=== PATIENT | male | born 1960 | race Caucasian/White ===

== ENCOUNTER 2020-11-09 11:09 | Day surgery (SDCO) | payer OTHER ==
[~2020-11-09] VITALS: Ht 165.1 cm; Wt 67.0 kg
[2020-11-09 11:48] LABS: BASOPHIL 0.2 % (0-2); EOSINOPHIL 0.9 % (0-5); HCT 37.6 % (42.0-52.0); HGB 13.1 g/dl (13.2-18.0); MCH 30.8 pg (25.0-31.0); MCHC 34.8 g/dL (32.0-36.0); MCV 88.5 fL (78.0-100.0); MONOCYTE 5.7 % (0-12); MPV 8.6 fL (6.0-9.5); NEUTROPHIL 80.7 % (41-80); NRBC 0; PLT 333 K/uL (150-400); RBC 4.25 M/uL (4.70-6.00); RDW 12.8 % (11.5-14.0); WBC 12.9 K/uL (4.0-10.5)
[2020-11-09 12:21] LABS: BILIRUBIN - TOTAL 0.4 mg/dL (0.2-1.0); BUN/CREAT RATIO (CALC) 14.1 RATIO; CREATININE 2.63 mg/dL (0.67-1.17); POTASSIUM 5.1 mmol/L (3.5-5.1)
[2020-11-09 17:42] LABS: BILIRUBIN NEGATIVE (NEGATIVE); BLOOD NEGATIVE Ery/uL (NEGATIVE); CLARITY CLEAR (CLEAR); COLOR YELLOW (YELLOW); GLUCOSE (U) 3+ mg/dL (NORMAL); LEUKOCYTES NEGATIVE Leu/uL (NEGATIVE); NITRITE NEGATIVE (NEGATIVE); PROTEIN 2+ mg/dL (NEGATIVE); SPECIFIC GRAVITY >=1.030 (1.001-1.030); UROBILINOGEN 0.2 mg/dL (0.2-1.0)
[2020-11-09 18:02] LABS: AMORPHOUS URATES CRYSTALS TRACE; BACTERIA TRACE; CALCIUM OXALATE CRYSTALS TRACE; SQUAMOUS EPITHELIAL CELLS RARE
[2020-11-09 18:03] LABS: SPERM PRESENT
[2020-11-09] MEDS ORDERED: ELAVIL50 MG PO (18:23)
[2020-11-09] MEDS ORDERED: JANUVIA50 MG PO (18:23)
[2020-11-09] MEDS ORDERED: OMEPRAZOLE 20MG20 MG PO (18:24)
[2020-11-09] MEDS ORDERED: LOVASTATIN40 MG PO (18:24)
[2020-11-09] MEDS ORDERED: GLIPIZIDE ER5 MG PO (18:29)
[2020-11-10 06:08] LABS: BASOPHIL 0.4 % (0-2); EOSINOPHIL 5.1 % (0-5); HCT 36.4 % (42.0-52.0); HGB 12.5 g/dl (13.2-18.0); LYMPHOCYTE 25.8 % (15-48); MCH 30.9 pg (25.0-31.0); MCHC 34.3 g/dL (32.0-36.0); MCV 89.9 fL (78.0-100.0); MONOCYTE 7.2 % (0-12); MPV 8.8 fL (6.0-9.5); NEUTROPHIL 61.1 % (41-80); NRBC 0; PLT 311 K/uL (150-400); RBC 4.05 M/uL (4.70-6.00); RDW 12.9 % (11.5-14.0); WBC 7.9 K/uL (4.0-10.5)
[2020-11-10 06:22] LABS: BUN/CREAT RATIO (CALC) 20.4 RATIO; CREATININE 1.52 mg/dL (0.67-1.17); POTASSIUM 5.2 mmol/L (3.5-5.1)
[2020-11-10] MEDS ORDERED: NORCO 5-325 TA1 EACH PO (13:15)
== END 2020-11-10 14:57 | disposition home or self-care (01) ==
LOC: FER 11:09 → FTCU 16:42
PROVIDERS: Internal Medicine; Nurse Practitioner; ADMIT Internal Medicine
DX: R55 Syncope and collapse (principal); N17.9 Acute kidney failure, unspecified; S22.41XA Multiple fractures of ribs, right side, initial encounter for closed fracture; R07.89 Other chest pain; I11.9 Hypertensive heart disease without heart failure; E11.65 Type 2 diabetes mellitus with hyperglycemia; E78.5 Hyperlipidemia, unspecified; K21.9 Gastro-esophageal reflux disease without esophagitis; Z79.84 Long term (current) use of oral hypoglycemic drugs; Z79.899 Other long term (current) drug therapy; Z88.5 Allergy status to narcotic agent; Z20.822 Contact with and (suspected) exposure to COVID-19; W01.0XXA Fall on same level from slipping, tripping and stumbling without subsequent striking against object, initial encounter
CPT/HCPCS: 36415; 70450; 71101; 76770; 80048; 80053; 81001; 82553; 82962; 83036; 84443; 84484; 85025; 93005; G0378; J7030; U0002